=== PATIENT | female | born 1975 | race Caucasian/White ===

== ENCOUNTER 2017-12-20 09:46 | Emergency (ER) | payer OTHER, MEDICAID ==
[~2017-12-20] VITALS: Ht 157.5 cm; Wt 83.5 kg
[~2017-12-20 09:46] MED LIST: BUSPIRONE HCL10 MG PO; HYDROCODONE-AP1 EAC6 PO; PERCOCET PO; SERTRALINE HCL50 MG PO; ZOCOR20 MG PO
[2017-12-20] MEDS ORDERED: ACCUNEB SO1.25 MG/1 INH (10:01)
[2017-12-20] MEDS ORDERED: TRAZODONE HCL100 MG PO (10:01)
[2017-12-20 10:45] LABS: HEMATOCRIT 42.3 % (37.0-47.0); HEMOGLOBIN 14.4 gm/dL (12.0-15.0); NUCLEATED RBCS 0 /100WBC; PLATELET COUNT* 304 thou/uL (150-400); RDW-CV 12.8 % (10.5-14.5); WBC 9.6 thou/uL (4.0-11.0)
[2017-12-20 10:52] LABS: ANION GAP 8 mmol/L (7-16); BUN 6 mg/dL (7-18); CALCIUM 8.9 mg/dL (8.5-10.1); CHLORIDE 102 mmol/L (98-107); CO2 26 mmol/L (21-32); CREATININE 0.9 mg/dL (0.6-1.3); GLUCOSE 112 mg/dL (70-99); POTASSIUM 4.2 mmol/L (3.5-5.1); SODIUM 136 mmol/L (136-145)
[2017-12-20 10:59] LABS: ALBUMIN 3.6 g/dL (3.4-5.0); ALKALINE PHOSPHATASE 71 U/L (46-116); SGOT 15 U/L (15-37); SGPT 20 U/L (30-65); TOTAL BILIRUBIN 0.3 mg/dL (<0.1-1.0); TOTAL PROTEIN 7.3 g/dL (6.4-8.2); TROPONIN-I LEVEL <0.06 ng/mL (<0.06)
[2017-12-20 11:06] LABS: ABSOLUTE EOSINOPHILS 1.3 thou/uL (0.0-0.7); ABSOLUTE LYMPHOCYTES 1.8 thou/uL (0.8-5.3); ABSOLUTE MONOCYTES 0.6 thou/uL (0.0-1.2); ABSOLUTE NEUTROPHILS 5.9 thou/uL (1.6-8.1); PLATELET ESTIMATE ADEQUATE
[2017-12-20] MEDS ORDERED: MUCINEX600 MG PO (12:04)
[2017-12-20] MEDS ORDERED: ALBUTEROL2.5 MG/31 INH (12:04)
[2017-12-20] MEDS ORDERED: PREDNISONE50 MG PO (12:04)
[2017-12-20] MEDS ORDERED: VENTOLIN HFA 1818 GM INH (12:04)
[2017-12-20 12:24] VITALS: BP 126/86
--- NOTE | 2017-12-21 13:00 | EKG ---
[place] [address] ELECTROCARDIOGRAM REPORT Name: STEPHANIE GRAMAJO Room: [facility]#: [id number] Admission: 12/20/17 Attend Phys: Discharge: 12/20/17 Date of : 77 Report #: [id number] THIS REPORT FOR: //name// [facility] ED Test Date: 2017-12-20 Test Time: 10:44:30 Pat Name: STEPHANIE GRAMAJO Department: Room: Gender: F Chip Mucker: Sarahi GONZALEZ : 1975 Requested By: Chaparro Shelton Order Number: [id number] MD: Erik Aponte Measurements Intervals [place] Rate: 88 P: 14 CA: 138 QRS: 52 QRSD: 84 T: 58 QT: 354 QTc: 429 Interpretive Statements Sinus rhythm Probable anteroseptal infarct, old No previous ECG available for comparison Electronically Signed On 12-21-2017 12:59:55 CDT by Erik Aponte [email or web address] <ELECTRONICALLY SIGNED> By: Erik Aponte MD, [facility] 12/21/17 1259 [id number] Erik Aponte MD, FACC /EPI
== END 2017-12-20 12:26 | disposition home or self-care (01) ==
LOC: M.ERS 09:46
PROVIDERS: Emergency Medicine Emergency Medical Services
DX: J40 Bronchitis, not specified as acute or chronic (principal); F17.200 Nicotine dependence, unspecified, uncomplicated

== ENCOUNTER 2018-08-10 14:32 | Emergency (ER) | payer OTHER, MEDICAID ==
[~2018-08-10] VITALS: Ht 157.5 cm; Wt 77.1 kg
[~2018-08-10 14:32] MED LIST changes: +ACCUNEB SO1.25 MG/1 INH; +ALBUTEROL2.5 MG/31 INH; +MUCINEX600 MG PO; +PREDNISONE50 MG PO; +TRAZODONE HCL100 MG PO; +VENTOLIN HFA 1818 GM INH
[2018-08-10] MEDS ORDERED: TRAMADOL 50 MG50 MG PO (15:50)
[2018-08-10] MEDS ORDERED: IBUPROFEN 800800 M1 PO (15:50)
[2018-08-10 16:11] VITALS: BP 124/92
== END 2018-08-10 16:11 | disposition home or self-care (01) ==
LOC: M.ERS 14:32
DX: R51 Headache (principal); M54.2 Cervicalgia; M54.5 Low back pain

== ENCOUNTER 2019-02-07 08:50 | Emergency (ER) | payer OTHER, MEDICAID ==
[~2019-02-07] VITALS: Ht 157.5 cm; Wt 74.8 kg
[~2019-02-07 08:50] MED LIST changes: -BUSPIRONE HCL10 MG PO; +BUSPIRONE HCL7.5 MG PO; +IBUPROFEN 800800 M1 PO; +TRAMADOL 50 MG50 MG PO
[2019-02-07] MEDS ORDERED: TRAZODONE HCL100 MG PO (09:03)
[2019-02-07] MEDS ORDERED: PERCOCET 5-3251 EACH PO (09:05)
[2019-02-07 09:19] VITALS: BP 141/97
== END 2019-02-07 09:19 | disposition home or self-care (01) ==
LOC: M.ERS 08:50
DX: S86.812A Strain of other muscle(s) and tendon(s) at lower leg level, left leg, initial encounter (principal); F41.9 Anxiety disorder, unspecified; F17.210 Nicotine dependence, cigarettes, uncomplicated; X50.1XXA Overexertion from prolonged static or awkward postures, initial encounter; Y93.89 Activity, other specified; Y92.89 Other specified places as the place of occurrence of the external cause; Y99.8 Other external cause status

== ENCOUNTER 2019-04-21 13:19 | Emergency (ER) | payer OTHER, MEDICAID ==
[~2019-04-21] VITALS: Ht 157.5 cm; Wt 72.6 kg
[~2019-04-21 13:19] MED LIST changes: +PERCOCET 5-3251 EACH PO
[2019-04-21] MEDS ORDERED: TRAMADOL 50 MG50 MG PO (14:24)
[2019-04-21 14:35] VITALS: BP 129/73
== END 2019-04-21 14:36 | disposition home or self-care (01) ==
LOC: M.ERS 13:19
DX: M25.562 Pain in left knee (principal); G47.00 Insomnia, unspecified; F41.9 Anxiety disorder, unspecified

== ENCOUNTER 2019-09-14 05:20 | Emergency (ER) | payer OTHER, MEDICAID ==
[~2019-09-14] VITALS: Ht 157.5 cm; Wt 77.1 kg
[2019-09-14] MEDS ORDERED: PROAIR HFA8.5 GM INH (05:33)
[2019-09-14] MEDS ORDERED: ALBUTEROL2.5 MG/0.5 INH (05:33)
[2019-09-14] MEDS ORDERED: TRAMADOL 50 MG50 MG PO (05:55)
[2019-09-14] MEDS ORDERED: PREDNISONE 20 M20 M1 PO (05:55)
[2019-09-14] MEDS ORDERED: VENTOLIN HFA 1818 GM INH (05:55)
[2019-09-14] MEDS ORDERED: ZPAK PO (05:55)
[2019-09-14 06:03] VITALS: BP 142/97
== END 2019-09-14 06:05 | disposition home or self-care (01) ==
LOC: M.ERS 05:20
DX: J40 Bronchitis, not specified as acute or chronic (principal); G89.29 Other chronic pain; M25.562 Pain in left knee

== ENCOUNTER 2019-09-18 16:18 | Emergency (ER) | payer OTHER, MEDICAID ==
[~2019-09-18] VITALS: Ht 157.5 cm; Wt 77.1 kg
[~2019-09-18 16:18] MED LIST changes: +ALBUTEROL2.5 MG/0.5 INH; +PREDNISONE 20 M20 M1 PO; +PROAIR HFA8.5 GM INH; +ZPAK PO
[2019-09-18] MEDS ORDERED: TRAMADOL 50 MG50 MG PO (16:44)
[2019-09-18 16:57] VITALS: BP 132/80
== END 2019-09-18 16:58 | disposition home or self-care (01) ==
LOC: M.ERS 16:18
DX: G89.29 Other chronic pain (principal); M25.562 Pain in left knee

== ENCOUNTER 2020-07-03 17:15 | Emergency (ER) | payer OTHER, MEDICAID ==
[~2020-07-03] VITALS: Ht 157.5 cm; Wt 77.1 kg
[2020-07-03 17:25] VITALS: BP 137/88
[2020-07-03] MEDS ORDERED: NORCO 5-325 TA1 EAC2 PO (17:55)
[2020-07-03] MEDS ORDERED: AMOXICILLIN 50500 MG PO (17:55)
== END 2020-07-03 18:03 | disposition home or self-care (01) ==
LOC: M.ERS 17:15
DX: K02.9 Dental caries, unspecified (principal)

== ENCOUNTER 2020-07-24 09:15 | Emergency (ER) | payer OTHER, MEDICAID ==
[~2020-07-24] VITALS: Ht 157.5 cm; Wt 78.0 kg
[~2020-07-24 09:15] MED LIST changes: +AMOXICILLIN 50500 MG PO; +NORCO 5-325 TA1 EAC2 PO
[2020-07-24 14:07] VITALS: BP 145/84
== END 2020-07-24 14:09 | disposition left against medical advice (07) ==
LOC: M.ERS 09:15
DX: M25.562 Pain in left knee (principal); Z53.21 Procedure and treatment not carried out due to patient leaving prior to being seen by health care provider

== ENCOUNTER 2021-04-02 12:24 | Emergency (ER) | payer OTHER, MEDICAID ==
[~2021-04-02] VITALS: Ht 157.5 cm; Wt 80.7 kg
[2021-04-02] MEDS ORDERED: NAPROSYN500 M1 PO (12:40)
[2021-04-02] MEDS ORDERED: NORCO5 PO (14:26)
[2021-04-02 14:38] VITALS: BP 141/97
== END 2021-04-02 14:40 | disposition home or self-care (01) ==
LOC: M.ERS 12:24
DX: S86.812A Strain of other muscle(s) and tendon(s) at lower leg level, left leg, initial encounter (principal); S90.32XA Contusion of left foot, initial encounter; F17.210 Nicotine dependence, cigarettes, uncomplicated; W22.8XXA Striking against or struck by other objects, initial encounter; Y93.89 Activity, other specified; Y92.89 Other specified places as the place of occurrence of the external cause; Y99.8 Other external cause status

== ENCOUNTER 2021-06-06 13:49 | Emergency (ER) | payer OTHER, MEDICAID ==
[~2021-06-06] VITALS: Ht 157.5 cm; Wt 79.4 kg
[~2021-06-06 13:49] MED LIST changes: +NAPROSYN500 M1 PO; +NORCO5 PO
[2021-06-06] MEDS ORDERED: HYDROCODON-ACE1 EAC7 PO (15:46)
[2021-06-06 15:51] VITALS: BP 153/99
== END 2021-06-06 15:52 | disposition home or self-care (01) ==
LOC: M.ERS 13:49
DX: S90.112A Contusion of left great toe without damage to nail, initial encounter (principal); S90.32XA Contusion of left foot, initial encounter; S80.02XA Contusion of left knee, initial encounter; M25.462 Effusion, left knee; F41.9 Anxiety disorder, unspecified; F17.210 Nicotine dependence, cigarettes, uncomplicated; Z98.890 Other specified postprocedural states; Z79.899 Other long term (current) drug therapy; W17.89XA Other fall from one level to another, initial encounter; Y93.89 Activity, other specified; Y92.89 Other specified places as the place of occurrence of the external cause; Y99.8 Other external cause status